=== PATIENT | male | born 1945 | race Caucasian/White ===

== ENCOUNTER 2018-02-28 16:49 | Emergency (ER) | payer MEDICARE, OTHER ==
[~2018-02-28 16:49] MED LIST: AMLO-96 PO; AMOX-559 PO; ATOR40TA69 PO; FAMO20TA28 PO; HYDR25CA13 PO; MELO-207 PO; MULT1CAP59 PO; PER PO; PRED20TA6 PO
--- NOTE | 2018-02-28 16:56 | ER Report ---
History and Physical Time Seen By MD: 16:56 HPI/ROS CHIEF COMPLAINT: Left index finger injury HISTORY OF PRESENT ILLNESS: This is a 72-year-old male who presents to the emergency department for a left index finger injury. Patient states that about one hour prior to arrival he was using a high pressure paint sprayer and tried to The end of the spray gun with his left index finger pulled the trigger and sprayed the lacquer thinner into his finger causing some irritation to the pad. Patient states that he does have some discomfort to the distal index finger as well as the DIP and MIP. There is some slight redness noted to the area however no degloving or obvious open injury to the finger. Patient denies any other complaints, no chest pain or shortness of breath no nausea or vomiting. REVIEW OF SYSTEMS: Respiratory: No cough, no dyspnea. Cardiovascular: No chest pain, no palpitations. Gastrointestinal: No vomiting, no abdominal pain. Musculoskeletal: As above. Integumentary: As above. Allergies: Coded Allergies: celecoxib (Verified Allergy, Unknown, 02/28/18) formaldehyde (Verified Allergy, Unknown, UNKNOWN, 02/28/18) Home Meds Reported Medications Amlodipine Besylate (AMLODIPINE BESYLATE) 5 Mg Tablet, 2 TAB PO QDAY, TAB 10/28/15 Atorvastatin Calcium (ATORVASTATIN CALCIUM) 40 Mg Tablet, 1 TAB PO QDAY, TAB 10/28/15 Meloxicam (MELOXICAM) 15 Mg Tablet, 7.5 MG PO QDAY Y for PRN 10/28/15 Discontinued Reported Medications Multivitamin (MULTIVITAMINS) 1 Each Capsule, 1 EACH PO, CAPSULE 11/23/16 Discontinued Scripts Famotidine (PEPCID) 20 Mg Tablet, 20 MG PO QDAY, #15 TAB 0 Refills Prov:MELANIE MESA 11/23/16 Hydroxyzine Pamoate (HYDROXYZINE PAMOATE) 25 Mg Capsule, 25 MG PO TID Y for ITCHING, #30 CAPSULE 0 Refills Prov:MELANIE MESA 11/23/16 Prednisone (PREDNISONE) 20 Mg Tablet, 20 MG PO BID, #10 TAB 0 Refills Prov:MELANIE MESA 11/23/16 Past Medical/Surgical History Patient has a past medical and surgical history of carpal tunnel syndrome, great toe injury, right shoulder surgery. Reviewed Nurses Notes: Yes Hx Smoking: No Smoking Status: Former Smoker Hx Substance Use Disorder: No Hx Alcohol Use: Yes (OCC) Constitutional Vital Sign - Last 24 Hours 02/28/18 02/28/18 02/28/18 02/28/18 16:53 16:54 17:00 17:30 Temp 97.9 Pulse 74 Resp 20 B/P (MAP) 149/88 (108) 149/88 155/94 (114) 128/82 (97) Pulse Ox 95 O2 Delivery Room Air 02/28/18 02/28/18 02/28/18 17:49 18:00 18:17 Pulse 66 B/P (MAP) 131/82 (98) 139/86 (103) Pulse Ox 94 Physical Exam General Appearance: The patient is alert, has no immediate need for airway protection and no current signs of toxicity. Eyes: Pupils equal and round no injection. Respiratory: Chest is non tender, lungs are clear to auscultation. Cardiac: regular rate and rhythm Gastrointestinal: Abdomen is soft and non tender, no masses, bowel sounds normal. Musculoskeletal: Neck: Neck is supple and non tender. Extremities have full range of motion and are non tender. Skin: Slight redness to the pad of the left index finger, no open wounds or breaks in the skin identified. No swelling of the DIP and MIP. CMS intact. DIFFERENTIAL DIAGNOSIS: After history and physical exam differential diagnosis was considered for abrasion and burn. Medical Decision Making EKG/Imaging Imaging Location: [facility] [place] Patient: Ministerio Carter : 1945 Visit/Account:[id number] Date of Sevice: 02/28/2018 Exam type: HAND COMPLETE LEFT History: eval dist left index finger for injury 2nd to spry gun Comparison: None. Findings: There is no evidence of acute fracture dislocation involving the left hand. There is a small metallic foreign body projecting dorsal to the head of the left second carpal. Moderate degenerative changes are seen along the radial aspect of the left wrist. IMPRESSION: 1. No evidence of acute fractures condition involving left hand Small metallic foreign body projects just dorsal to the head of the left second metacarpal Report Dictated By: Mary Ann Saucedo MD at 02/28/2018 5:58 PM Report E-Signed By: Mary Ann Saucedo MD at 02/28/2018 6:00 PM JTN:[email or web address] ED Course/Re-evaluation ED Course The patient was admitted to room. A history and physical were obtained. Differential diagnoses were considered. A left hand x-ray was obtained showing no acute bony involvement. Incidental finding of a foreign body which the patient was aware of. I did review these results with the patient. I did instruct the patient to continue to monitor the finger for any signs of infection and return to the emergency department for any other concerns or worsening symptoms. Patient was in agreement with this plan of care and discharged home. Decision to Disposition Date: February 28, 2018 Decision to Disposition Time: 18:10 Depart Departure Latest Vital Signs Vital Signs Date Time Temp Pulse Resp B/P (MAP) Pulse Ox O2 Delivery O2 Flow Rate FiO2 02/28/18 18:17 139/86 (103) 02/28/18 17:49 66 94 02/28/18 16:54 97.9 20 Room Air Impression: Primary Impression: Finger injury Condition: Improved Disposition: HOME OR SELF-CARE Referrals: NASIR VAZQUEZ DO (PCP) Patient Instructions: Cellulitis (ED) Additional Instructions: Drink plenty of water. Get plenty of rest. Return to the emergency department for increased redness or swelling which could indicate a skin infection. Follow-up with your primary care provider as needed. Problem Qualifiers Primary Impression: Finger injury Encounter type: initial encounter Laterality: left Qualified Codes: S69.92XA - Unspecified injury of left wrist, hand and finger(s), initial encounter KAILEE DIANA KEY OPERATOR-BC February 28, 2018 16:56
--- NOTE | 2018-02-28 18:03 | RADIOLOGY IMAGING REPORT ---
FACILITY: 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 Findings: There is no evidence of acute fracture dislocation involving the left hand. There is a small metalli c foreign body projecting dorsal to the head of the left second carpal. Moderate degenerative change s are seen along the radial aspect of the left wrist. IMPRESSION: 1. No evidence of acute fractures condition involving left hand Small metallic foreign body projects just dorsal to the head of the left second metacarpal Report Dictated By: Mary Ann Saucedo MD at 02/28/2018 5:58 PM Report E-Signed By: Mary Ann Saucedo MD at 02/28/2018 6:00 PM WSN:[email or web address]
[2018-02-28 18:17] VITALS: BP 139/86
== END 2018-02-28 18:23 | disposition home or self-care (01) ==
LOC: ER 16:58
DX: S69.92XA Unspecified injury of left wrist, hand and finger(s), initial encounter (principal)
CPT/HCPCS: 99282